=== PATIENT | female | born 1965 | race Caucasian/White ===

== ENCOUNTER 2021-10-15 23:45 | Emergency (ER) | payer MEDICAID ==
[~2021-10-15] VITALS: Ht 165.1 cm; Wt 74.4 kg
[~2021-10-15 23:45] MED LIST: METF-440 PO
--- NOTE | 2021-10-16 00:20 | NUR ---
URINE SAMPLE COLLECTED AND SENT TO LAB
--- NOTE | 2021-10-16 00:23 | NUR ---
TO ER BED 2. BIBS C/O PAINFUL URINATION X 2 DAYS. DENIES ANY FEVERS. TOOK MOTRIN WITH NO RELIEF. CONNECTED TO MONITOR. AWAITING MD LOPEZ
--- NOTE | 2021-10-16 00:30 | NUR ---
BIBS A/O X3 PT C/O PAINFUL URINATION X 2 DAYS
[2021-10-16 02:14] LABS: BILIRUBIN,URINE NEGATIVE (NEGATIVE); COLOR,URINE YELLOW (YELLOW); LEUKOCYTE ESTERASE ,URINE NEGATIVE (NEGATIVE); NITRITE, URINE NEGATIVE (NEGATIVE); PH,URINE 5.5 (5.0-8.0); PROTEIN,URINE NEGATIVE (NEGATIVE); UGLUCOSE 500 MG/DL mg/dL (NEGATIVE); UROBILINOGEN,URINE 0.2 EU/dL (0.2)
[2021-10-16] MEDS ORDERED: PHEN-704 PO (03:09)
[2021-10-16] MEDS ORDERED: NITR-84 PO (03:09)
[2021-10-16] MEDS ORDERED: NITROFURANTOIN/MONOHYDRATE MACROCRYSTALS 100 MG CAPSULE ONE (03:14)
[2021-10-16] MEDS ORDERED: PHENAZOPYRIDINE HCL 200 MG TABLET ONE (03:15)
--- NOTE | 2021-10-16 03:22 | NUR ---
PT DISCHARGED IN STABLE CONDITION
[2021-10-16] MEDS ORDERED: PHENAZOPYRIDINE HCL 200 MG TABLET PO ONE (03:30)
[2021-10-16] MEDS ORDERED: NITROFURANTOIN/MONOHYDRATE MACROCRYSTALS 100 MG CAPSULE PO ONE (03:30)
[2021-10-16 03:54] VITALS: BP 121/64
[2021-10-16 06:35] LABS: BACTERIA,URINE Few /HPF (None Seen); RBC,URINE 0-2 /HPF (0-2); SQUAMOUS EPITHELIAL CELL,UR Few /HPF (None Seen)
== END 2021-10-16 03:30 | disposition home or self-care (01) ==
LOC: ER 23:52
DX: R30.0 Dysuria (principal); R81 Glycosuria; E11.65 Type 2 diabetes mellitus with hyperglycemia; I10 Essential (primary) hypertension; E78.00 Pure hypercholesterolemia, unspecified; Z98.890 Other specified postprocedural states; Z79.899 Other long term (current) drug therapy; Z79.84 Long term (current) use of oral hypoglycemic drugs
CPT/HCPCS: 81001; 82962-TC; 84703-TC

== ENCOUNTER 2021-10-24 23:17 | Emergency (ER) | payer MEDICAID ==
[~2021-10-24] VITALS: Ht 170.2 cm; Wt 74.8 kg
[~2021-10-24 23:17] MED LIST changes: +NITR-84 PO; +PHEN-704 PO
[2021-10-25 01:00] VITALS: BP 130/67
--- NOTE | 2021-10-25 01:00 | NUR ---
PT BIBS. L SIDE HEADACHE AND L EYE PAIN X 3 DAYS. PT IS A/O X 4, RR EVEN AND UNLABORED, NO SOB NOTED, PT TAKEN TO ER BED 10. 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 WILL CONTINUE TO MONITOR.
[2021-10-25] MEDS ORDERED: ONDANSETRON HCL/PF 4 MG/2 ML VIAL ONE (01:29)
[2021-10-25] MEDS ORDERED: IV NS 0.9% 500 ML BAG IV ONE (01:30)
[2021-10-25] MEDS ORDERED: MORPHINE SULFATE INJ 4 MG/ML DISP.SYRIN ONE (01:30)
[2021-10-25] MEDS ORDERED: ONDANSETRON HCL/PF 4 MG/2 ML VIAL IVP ONE (01:30)
[2021-10-25] MEDS: MORPHINE SULFATE INJ 2 MG/ML DISP.SYRIN IV ONE ×2 (01:41→01:44)
--- NOTE | 2021-10-25 01:44 | NUR ---
IV LINE ESTABLISHED, LAC 18G. BLOOD COLLECTED AND SENT TO LAB
--- NOTE | 2021-10-25 01:47 | NUR ---
PT REFUSED MORPHINE, STATES "MAKES ME SICK". MED ALREADY DRAWN. WASTED MED, 4MG , WITNESSED BY SHAHRAM CALLAHAN. MADE AWARE.
[2021-10-25] MEDS ORDERED: IOHEXOL-300 100 ML VIAL IV ONE (01:51)
[2021-10-25 01:58] LABS: BASOPHILS % (AUTO) 0.2 % (0.0-2.0); HEMATOCRIT 38 % (33-45); HEMOGLOBIN 12.8 g/dL (11.5-14.8); LYMPHOCYTES # (AUTO) 2.3 K/uL (0.8-4.8); LYMPHOCYTES % (AUTO) 40.5 % (20.0-44.0); MEAN CORPUSCULAR HGB CONC 34 g/dl (31.0-36.0); MEAN CORPUSCULAR VOLUME 86 fL (82-100); MONOCYTES # (AUTO) 0.4 K/uL (0.1-1.30); MONOCYTES % (AUTO) 6.2 % (2.0-12.0); NEUTROPHILS % (AUTO) 52.1 % (43.0-81.0); PLATELET COUNT (AUTO) 296 K/uL (150-450); RED BLOOD CELL COUNT(AUTO) 4.37 MIL/uL (4.0-5.2); WHITE BLOOD COUNT (AUTO) 5.8 K/uL (4.3-11.0)
[2021-10-25] MEDS ORDERED: ACETAMINOPHEN 325 MG TABLET PO ONE (02:00)
[2021-10-25] MEDS ORDERED: ACETAMINOPHEN 325 MG TABLET ONE (02:01)
[2021-10-25 02:06] LABS: CALCIUM, SERUM 8.8 mg/dL (8.5-10.1); CREATININE 0.6 mg/dL (0.6-1.3); POTASSIUM 3.9 mmol/L (3.5-5.1)
[2021-10-25] MEDS ORDERED: IV NS 0.9% 1,000 ML BAG IV ONE (03:00)
[2021-10-25] MEDS ORDERED: KETOROLAC TROMETHAMINE 15 MG/ML VIAL ONE (03:57)
[2021-10-25] MEDS ORDERED: KETOROLAC TROMETHAMINE INJ 30 MG/ML VIAL IV ONE (04:00)
[2021-10-25] MEDS ORDERED: CEPHALEXIN MONOHYDRATE 500 MG CAPSULE PO ONE ×2 (04:59→05:00)
[2021-10-25] MEDS ORDERED: SULFAMETH/TRIMETH 800/160 MG 1 UDTAB TABLET PO ONE (05:00)
[2021-10-25] MEDS ORDERED: SULFAMETH/TRIMETH 800/160 MG 1 UDTAB TABLET ONE (05:00)
[2021-10-25] MEDS ORDERED: CEPH500T PO (05:05)
[2021-10-25] MEDS ORDERED: SULF1TAB48 PO (05:06)
== END 2021-10-25 05:12 | disposition home or self-care (01) ==
LOC: ER 23:20
DX: L03.213 Periorbital cellulitis (principal); E11.65 Type 2 diabetes mellitus with hyperglycemia; I10 Essential (primary) hypertension; E11.9 Type 2 diabetes mellitus without complications; E78.00 Pure hypercholesterolemia, unspecified; Z79.899 Other long term (current) drug therapy
CPT/HCPCS: 36415; 70481; 80048; 85025; 85730; 96361; 96374; 99285; J2405; J7030; J7040; Q9967; J1885; J2270

== ENCOUNTER 2022-02-21 13:50 | Emergency (ER) | payer MEDICAID, OTHER ==
[~2022-02-21] VITALS: Ht 167.6 cm; Wt 76.2 kg
[~2022-02-21 13:50] MED LIST changes: +CEPH500T PO; +SULF1TAB48 PO
[2022-02-21 13:57] VITALS: BP 138/71
--- NOTE | 2022-02-21 14:12 | NUR ---
URINE SAMPLE COLLECTED AND SENT TO LAB
[2022-02-21] MEDS ORDERED: PHEN-705 PO (14:25)
[2022-02-21] MEDS ORDERED: CEPH500C2 PO (14:25)
--- NOTE | 2022-02-21 14:33 | NUR ---
Patient discharged to home in stable condition. Written and verbal after care instructions given. Patient verbalizes understanding of instruction.
[2022-02-21 16:00] LABS: BILIRUBIN,URINE NEGATIVE (NEGATIVE); COLOR,URINE YELLOW (YELLOW); LEUKOCYTE ESTERASE ,URINE SMALL (NEGATIVE); NITRITE, URINE POSITIVE (NEGATIVE); PH,URINE 6.5 (5.0-8.0); PROTEIN,URINE TRACE mg/dl (NEGATIVE); UGLUCOSE NEGATIVE (NEGATIVE); UROBILINOGEN,URINE 0.2 EU/dL (0.2)
[2022-02-21 17:05] LABS: BACTERIA,URINE MANY /HPF (None Seen); RBC,URINE TOO NUMEROUS TO COUN /HPF (0-2); SQUAMOUS EPITHELIAL CELL,UR Few /HPF (None Seen)
== END 2022-02-21 14:33 | disposition home or self-care (01) ==
LOC: ER 14:10
DX: N39.0 Urinary tract infection, site not specified (principal); I10 Essential (primary) hypertension; E11.9 Type 2 diabetes mellitus without complications; E78.00 Pure hypercholesterolemia, unspecified; Z79.899 Other long term (current) drug therapy
CPT/HCPCS: 81001; 87086-TC; 87186-TC

== ENCOUNTER 2023-03-26 23:49 | Emergency (ER) | payer OTHER ==
[~2023-03-26] VITALS: Ht 157.5 cm; Wt 72.6 kg
[~2023-03-26 23:49] MED LIST changes: +CEPH500C2 PO; +PHEN-705 PO
[2023-03-27] MEDS ORDERED: KETOROLAC TROMETHAMINE 15 MG/ML VIAL ONE (00:45)
[2023-03-27] MEDS ORDERED: ONDANSETRON HCL/PF 4 MG/2 ML VIAL ONE (00:46)
[2023-03-27] MEDS ORDERED: ONDANSETRON HCL/PF 4 MG/2 ML VIAL IVP ONE (01:00)
[2023-03-27] MEDS ORDERED: KETOROLAC TROMETHAMINE INJ 30 MG/ML VIAL IV ONE (01:00)
[2023-03-27 01:05] LABS: BASOPHILS # (AUTO) 0.1 K/uL (0.0-0.2); BASOPHILS % (AUTO) 0.4 % (0.0-2.0); EOSINOPHILS % (AUTO) 0.3 % (0.0-6.0); HEMATOCRIT 42 % (33-45); HEMOGLOBIN 13.6 g/dL (11.5-14.8); LYMPHOCYTES # (AUTO) 2.4 K/uL (0.8-4.8); LYMPHOCYTES % (AUTO) 19.1 % (20.0-44.0); MEAN CORPUSCULAR HEMOGLOBIN 29 PG (26.0-33.0); MEAN CORPUSCULAR HGB CONC 33 g/dl (31.0-36.0); MEAN CORPUSCULAR VOLUME 91 fL (82-100); MONOCYTES # (AUTO) 0.9 K/uL (0.1-1.30); MONOCYTES % (AUTO) 7.2 % (2.0-12.0); NEUTROPHILS # (AUTO) 9.2 K/uL (1.8-8.9); PLATELET COUNT (AUTO) 338 K/uL (150-450); RED BLOOD CELL COUNT(AUTO) 4.62 MIL/uL (4.0-5.2); RED CELL DISTRIBUTION WIDTH 14.2 % (11.5-15.0); WHITE BLOOD COUNT (AUTO) 12.7 K/uL (4.3-11.0)
[2023-03-27 01:16] LABS: APPEARANCE,URINE CLEAR (CLEAR); BILIRUBIN,URINE NEGATIVE (NEGATIVE); BLOOD, URINE 2+ Ery/uL (NEGATIVE); COLOR,URINE YELLOW (YELLOW); KETONES,URINE NEGATIVE (NEGATIVE); LEUKOCYTE ESTERASE ,URINE NEGATIVE (NEGATIVE); NITRITE, URINE NEGATIVE (NEGATIVE); PROTEIN,URINE NEGATIVE (NEGATIVE); UGLUCOSE NEGATIVE (NEGATIVE); UROBILINOGEN,URINE 0.2 EU/dL (0.2)
[2023-03-27 01:24] LABS: CALCIUM, SERUM 9.4 mg/dL (8.5-10.1); CREATININE 0.7 mg/dL (0.6-1.3); POTASSIUM 3.7 mmol/L (3.5-5.1)
[2023-03-27 01:51] LABS: ADD URINE CULTURE NO; BACTERIA,URINE None seen /HPF (None Seen); SQUAMOUS EPITHELIAL CELL,UR 0-2 /HPF (None Seen); WBC,URINE NONE SEEN /HPF (0-3)
[2023-03-27] MEDS ORDERED: TAMS-12 PO (04:06)
[2023-03-27] MEDS ORDERED: ONDA4TAB5 PO (04:06)
[2023-03-27] MEDS ORDERED: NABU-141 PO (04:06)
[2023-03-27] MEDS ORDERED: MORP15TA PO (04:06)
[2023-03-27] MEDS ORDERED: HYDROCODONE/APAP 5/325MG TABLET ONE (04:56)
[2023-03-27] MEDS ORDERED: HYDROCODONE/APAP 5/325MG TABLET PO ONE (05:00)
[2023-03-27 05:01] VITALS: BP 144/93; TEMP 98.2; O2SAT 95
== END 2023-03-27 05:08 | disposition home or self-care (01) ==
LOC: ER 23:51
DX: N20.0 Calculus of kidney (principal); R10.32 Left lower quadrant pain; I10 Essential (primary) hypertension; E11.9 Type 2 diabetes mellitus without complications; E78.00 Pure hypercholesterolemia, unspecified; Z79.84 Long term (current) use of oral hypoglycemic drugs; Z79.899 Other long term (current) drug therapy; Z53.21 Procedure and treatment not carried out due to patient leaving prior to being seen by health care provider
CPT/HCPCS: 36415; 80048-TC; 81001; 85025-TC; J1885; J2405

== ENCOUNTER 2023-09-16 22:10 | Emergency (ER) | payer OTHER ==
[~2023-09-16] VITALS: Ht 170.2 cm; Wt 72.6 kg
[~2023-09-16 22:10] MED LIST changes: +MORP15TA PO; +NABU-141 PO; +ONDA4TAB5 PO; +TAMS-12 PO
[2023-09-16 22:38] VITALS: TEMP 98.2
[2023-09-16] MEDS ORDERED: ACETAMINOPHEN ES 500 MG TABLET ONE (22:56)
[2023-09-16] MEDS ORDERED: diphenhydrAMINE HCL 50 MG CAPSULE ONE (22:56)
[2023-09-16] MEDS ORDERED: METOCLOPRAMIDE HCL 10 MG TABLET ONE (22:57)
[2023-09-16] MEDS: diphenhydrAMINE HCL 25 MG CAPSULE PO ONE (23:05)
[2023-09-16] MEDS: METOCLOPRAMIDE HCL 10 MG TABLET PO ONE (23:05)
[2023-09-16] MEDS: ACETAMINOPHEN ES 500 MG TABLET PO ONE (23:05)
[2023-09-17 03:27] VITALS: BP 137/97; O2SAT 98
== END 2023-09-17 03:28 | disposition home or self-care (01) ==
LOC: ER 22:12
DX: R51.9 Headache, unspecified (principal); R11.0 Nausea; I10 Essential (primary) hypertension; E11.9 Type 2 diabetes mellitus without complications; Z86.73 Personal history of transient ischemic attack (TIA), and cerebral infarction without residual deficits
CPT/HCPCS: 99284; 70450; Q0163; J8597

== ENCOUNTER 2023-12-01 10:41 | Emergency (ER) | payer OTHER ==
[~2023-12-01] VITALS: Ht 165.1 cm; Wt 72.6 kg
[2023-12-01 10:53] VITALS: TEMP 98.6
[2023-12-01 11:24] LABS: APPEARANCE,URINE TURBID (CLEAR); BILIRUBIN,URINE NEGATIVE (NEGATIVE); BLOOD, URINE 3+ Ery/uL (NEGATIVE); COLOR,URINE DARK YELLOW (YELLOW); KETONES,URINE NEGATIVE (NEGATIVE); LEUKOCYTE ESTERASE ,URINE 2+ (NEGATIVE); NITRITE, URINE POSITIVE (NEGATIVE); PROTEIN,URINE 2+ mg/dl (NEGATIVE); UGLUCOSE NEGATIVE (NEGATIVE); UROBILINOGEN,URINE 0.2 EU/dL (0.2)
[2023-12-01 11:30] LABS: ADD URINE CULTURE YES; BACTERIA,URINE Moderate /HPF (None Seen); RBC,URINE 21-50 /HPF (0-2); SQUAMOUS EPITHELIAL CELL,UR Few /HPF (None Seen)
[2023-12-01] MEDS ORDERED: IBUP-1953 PO (11:34)
[2023-12-01] MEDS ORDERED: CEPH500T PO (11:34)
[2023-12-01] MEDS ORDERED: IBUPROFEN 600 MG TABLET ONE (11:38)
[2023-12-01] MEDS: IBUPROFEN 600 MG TABLET PO ONE (11:44)
[2023-12-01 12:33] VITALS: BP 152/88; O2SAT 99
== END 2023-12-01 11:46 | disposition home or self-care (01) ==
LOC: ER 11:12
DX: N39.0 Urinary tract infection, site not specified (principal); I10 Essential (primary) hypertension; E11.9 Type 2 diabetes mellitus without complications; E78.00 Pure hypercholesterolemia, unspecified
CPT/HCPCS: 81001; 87086-TC

== ENCOUNTER 2024-07-18 23:55 | Emergency (ER) | payer OTHER ==
[~2024-07-18] VITALS: Ht 165.1 cm; Wt 72.6 kg
[~2024-07-18 23:55] MED LIST changes: +IBUP-1953 PO
[2024-07-19] MEDS ORDERED: GELATIN SPONGE,ABSORBABLE 1 SPONGE SPONGE TP ONE (00:19)
[2024-07-19] MEDS ORDERED: ACETAMINOPHEN 325 MG TABLET ONE (00:30)
[2024-07-19] MEDS ORDERED: TDAP [DIPH/PERTUSSIS/TET] 0.5 ML VIAL IM ONE (00:31)
[2024-07-19] MEDS: TDAP [DIPH/PERTUSSIS/TET] 0.5 ML VIAL IM ONE (00:32)
[2024-07-19] MEDS: ACETAMINOPHEN 325 MG TABLET PO ONE (00:33)
[2024-07-19] MEDS: GELATIN SPONGE,ABSORBABLE 1 SPONGE SPONGE TP ONE (00:35)
[2024-07-19 01:09] VITALS: BP 138/86; TEMP 98.1; O2SAT 98
== END 2024-07-19 01:09 | disposition home or self-care (01) ==
LOC: ER 23:58
DX: S61.210A Laceration without foreign body of right index finger without damage to nail, initial encounter (principal); E11.9 Type 2 diabetes mellitus without complications; I10 Essential (primary) hypertension; Z79.84 Long term (current) use of oral hypoglycemic drugs; W26.0XXA Contact with knife, initial encounter; Y93.89 Activity, other specified; Y92.89 Other specified places as the place of occurrence of the external cause; Y99.8 Other external cause status
CPT/HCPCS: 90715

== ENCOUNTER 2024-08-13 02:59 | Emergency (ER) | payer OTHER ==
[~2024-08-13] VITALS: Ht 165.1 cm; Wt 69.9 kg
[2024-08-13 03:26] LABS: BASOPHILS % (AUTO) 0.3 % (0.0-2.0); EOSINOPHILS # (AUTO) 0.1 K/uL (0.0-0.7); EOSINOPHILS % (AUTO) 0.8 % (0.0-6.0); HEMATOCRIT 38 % (33-45); HEMOGLOBIN 12.8 g/dL (11.5-14.8); LYMPHOCYTES # (AUTO) 2.2 K/uL (0.8-4.8); LYMPHOCYTES % (AUTO) 33.9 % (20.0-44.0); MEAN CORPUSCULAR HEMOGLOBIN 29 PG (26.0-33.0); MEAN CORPUSCULAR HGB CONC 34 g/dl (31.0-36.0); MEAN CORPUSCULAR VOLUME 86 fL (82-100); MONOCYTES # (AUTO) 0.4 K/uL (0.1-1.30); MONOCYTES % (AUTO) 6.1 % (2.0-12.0); NEUTROPHILS # (AUTO) 3.7 K/uL (1.8-8.9); NEUTROPHILS % (AUTO) 58.9 % (43.0-81.0); PLATELET COUNT (AUTO) 244 K/uL (150-450); RED BLOOD CELL COUNT(AUTO) 4.43 MIL/uL (4.0-5.2); RED CELL DISTRIBUTION WIDTH 13.5 % (11.5-15.0); WHITE BLOOD COUNT (AUTO) 6.4 K/uL (4.3-11.0)
[2024-08-13 03:43] LABS: MAGNESIUM 1.8 mg/dL (1.8-2.4)
[2024-08-13 03:47] LABS: ALANINE AMINOTRANSFERASE 20 U/L (12-78); ALBUMIN 3.8 g/dL (3.4-5.0); ALKALINE PHOSPHATASE 164 U/L (46-116); ASPARTATE AMINOTRANSFERASE 13 U/L (15-37); BILIRUBIN,DIRECT 0.1 mg/dL (0.0-0.2); BILIRUBIN,TOTAL 0.4 mg/dL (0.2-1.0); CALCIUM, SERUM 8.7 mg/dL (8.5-10.1); CARBON DIOXIDE 28 mmol/L (21-32); CHLORIDE 101 mmol/L (98-107); CREATININE 0.6 mg/dL (0.6-1.3); NT-PRO BNP 24 pg/mL (0-125); POTASSIUM 3.8 mmol/L (3.5-5.1); SODIUM SERUM 137 mmol/L (136-145); THYROID STIMULATING HORMONE 2.36 uIU/mL (0.358-3.74); TOTAL PROTEIN, SERUM 6.9 g/dL (6.4-8.2); UREA NITROGEN, BLOOD 13 mg/dL (7-18)
[2024-08-13 03:48] LABS: GLUCOSE 474 mg/dL (74-106)
[2024-08-13] MEDS ORDERED: ONDANSETRON HCL/PF 4 MG/2 ML VIAL ONE (03:57)
[2024-08-13] MEDS ORDERED: ACETAMINOPHEN 325 MG TABLET ONE (03:58)
[2024-08-13] MEDS ORDERED: MORPHINE SULFATE INJ 2 MG/ML DISP.SYRIN ONE (03:58)
[2024-08-13] MEDS: MORPHINE SULFATE INJ 2 MG/ML DISP.SYRIN IV ONE (04:05)
[2024-08-13] MEDS: ONDANSETRON HCL/PF 4 MG/2 ML VIAL IV ONE (04:06)
[2024-08-13] MEDS: ACETAMINOPHEN 325 MG TABLET PO ONE (04:06)
[2024-08-13] MEDS: IV NS 0.9% 1,000 ML BAG IV ONE (04:06)
[2024-08-13 05:34] LABS: ADD URINE CULTURE NO; APPEARANCE,URINE CLEAR (CLEAR); BACTERIA,URINE Rare /HPF (None Seen); BILIRUBIN,URINE NEGATIVE (NEGATIVE); BLOOD, URINE NEGATIVE Ery/uL (NEGATIVE); COLOR,URINE YELLOW (YELLOW); KETONES,URINE TRACE mg/dL (NEGATIVE); LEUKOCYTE ESTERASE ,URINE NEGATIVE (NEGATIVE); NITRITE, URINE NEGATIVE (NEGATIVE); PH,URINE 5.5 (5.0-8.0); PROTEIN,URINE NEGATIVE (NEGATIVE); RBC,URINE 0-2 /HPF (0-2); SQUAMOUS EPITHELIAL CELL,UR Few /HPF (None Seen); UGLUCOSE 3+ mg/dL (NEGATIVE); UROBILINOGEN,URINE 0.2 EU/dL (0.2)
[2024-08-13 08:24] VITALS: BP 141/71; TEMP 98.1; O2SAT 95
== END 2024-08-13 08:25 | disposition home or self-care (01) ==
LOC: ER 03:03
DX: R00.2 Palpitations (principal); R07.81 Pleurodynia; E11.65 Type 2 diabetes mellitus with hyperglycemia; E78.5 Hyperlipidemia, unspecified; I10 Essential (primary) hypertension; Z79.84 Long term (current) use of oral hypoglycemic drugs; Z79.899 Other long term (current) drug therapy
CPT/HCPCS: 99285; 96374; 96361; 93005; 71100; 85025; 80048; 80076; 83735; 85378; 81001; 36415; 84443; 84484 ×2; 83880; 82962; 84702; J2405; J7030; J2270

== ENCOUNTER 2025-02-07 14:27 | Emergency (ER) | payer OTHER ==
[~2025-02-07] VITALS: Ht 162.6 cm; Wt 77.6 kg
[2025-02-07 15:48] LABS: PLATELET COUNT (AUTO) 258 K/uL (150-450); RED BLOOD CELL COUNT(AUTO) 4.83 MIL/uL (4.0-5.2); RED CELL DISTRIBUTION WIDTH 13.3 % (11.5-15.0); WHITE BLOOD COUNT (AUTO) 5.6 K/uL (4.3-11.0)
[2025-02-07 16:05] LABS: ASPARTATE AMINOTRANSFERASE 13 U/L (15-37); CALCIUM, SERUM 8.8 mg/dL (8.5-10.1); CREATININE 0.6 mg/dL (0.6-1.3); SODIUM SERUM 139 mmol/L (136-145); TOTAL PROTEIN, SERUM 6.9 g/dL (6.4-8.2); UREA NITROGEN, BLOOD 12 mg/dL (7-18)
[2025-02-07 19:55] VITALS: BP 124/65; TEMP 98; O2SAT 97
== END 2025-02-07 19:55 | disposition home or self-care (01) ==
LOC: ER 14:27
DX: R06.00 Dyspnea, unspecified (principal); E11.65 Type 2 diabetes mellitus with hyperglycemia; E78.00 Pure hypercholesterolemia, unspecified; I10 Essential (primary) hypertension; Z79.84 Long term (current) use of oral hypoglycemic drugs; Z79.899 Other long term (current) drug therapy; Z20.822 Contact with and (suspected) exposure to COVID-19
CPT/HCPCS: 36415; 71045-TC; 80048-TC; 80076-TC; 82962-TC; 83880; 84484-TC; 85025-TC; 85378-TC